=== PATIENT | male | born 1980 ===

== ENCOUNTER → 2018-10-30 21:16 | Outpatient (REF) | payer OTHER, SELFPAY ==
[2018-10-30 22:49] LABS: Hepatitis B Surface Antigen NEGATIVE s/c (NEGATIVE)
[2018-10-30 23:13] LABS: Hep C Virus Ab w/Reflex Quant NEGATIVE s/c (NEGATIVE)
[2018-11-03 11:22] LABS: RPR Screen Nonreactive (Nonreactive)
[2018-11-03 19:58] LABS: HIV Ag/Ab, 4th Gen Nonreactive (Nonreactive)
[2018-11-04 14:28] LABS: HSV 2 IGG AB < 0.90 index (< 0.90); HSV1IGG < 0.90 index (< 0.90)
== END ==
LOC: LAB 21:16
PROVIDERS: Visit Provider Family Medicine
DX: Z11.3 Encounter for screening for infections with a predominantly sexual mode of transmission (principal)
CPT/HCPCS: 36415; 86592; 86695; 86696; 86703; 86803; 87340; 87491; 87591